=== PATIENT | female | born 1975 | race Caucasian/White ===

== ENCOUNTER → 2016-10-22 | Outpatient (CLI) | payer OTHER ==
[~2016-10-22] MED LIST: ACETAMINOPHEN PO; ALPRAZOLAM PO; AUGMENTIN PO; BENADRYL25 MG PO; ERYTHROMYC3.5 GM OPT; ERYTHROMYC3.5 GM OPT OP; HYDROCODON-ACE1 EAC7 PO; IBUPROFEN PO; KEFLEX500 M1 PO; KEFLEX500 MG PO; KLONOPIN PO; LEVAQUIN PO; LOPRESSOR PO; LORTAB 10-5001 EACH PO; LORTAB 2.5/5001 TAB PO; LORTAB 7.5-5001 TAB PO; NAPROXEN PO; NORVASC PO; PERCOCET5/325 PO; PHENERGAN PO; PHENERGAN W/CO120 ML PO; PHENERGAN25 MG PO; TYLOX 5-500 CA1 EACH PO; ULTRAM PO; VICODIN 5/1 TAB 5/50 PO; VICODIN PO; VOLTAREN50 MG PO; ZITHROMAX PO; ZOFRAN PO
[2016-10-22 19:55] LABS: AMPHETAMINE NEG (NEG); BARBITURATES NEG (NEG); BENZODIAZEPINES NEG (NEG); COCAINE NEG (NEG); MARIJUANA NEG (NEG); OPIATES NEG (NEG); TRICYCLIC ANTIDEPRESSANTS NEG (NEG); U METHADONE POS (NEG)
== END | disposition home or self-care (01) ==
LOC: CLAB 19:12
PROVIDERS: Anesthesiology
DX: R10.84 Generalized abdominal pain (principal)
CPT/HCPCS: 80307